=== PATIENT | male | born 1995 | race Caucasian/White ===

== ENCOUNTER 2020-05-28 10:59 | Emergency (ER) | payer OTHER ==
[~2020-05-28] VITALS: Ht 177.8 cm; Wt 95.3 kg
[2020-05-28] MEDS ORDERED: ERYTHROMYCIN E3.5 G3 OPHTHALMIC (11:34)
[2020-05-28 11:55] VITALS: BP 138/72
== END 2020-05-28 11:57 | disposition home or self-care (01) ==
LOC: M.ERS 10:59
DX: T15.11XA Foreign body in conjunctival sac, right eye, initial encounter (principal); T15.01XA Foreign body in cornea, right eye, initial encounter; X58.XXXA Exposure to other specified factors, initial encounter; Y93.89 Activity, other specified; Y92.89 Other specified places as the place of occurrence of the external cause; Y99.8 Other external cause status